=== PATIENT | male | born 1970 | race Caucasian/White ===

== ENCOUNTER → 2019-10-04 11:27 | Outpatient (CLI) | payer BC, SELFPAY ==
--- NOTE | 2019-10-04 11:43 | CT_ITS ---
PROCEDURE: CT HEART W CALCIUM SCORE CLINICAL HISTORY: evaluation for cad COMPARISON: No exams were available for comparison TECHNIQUE: Axial images obtained with sagittal and coronal reformats. All CT scans at the facility use one or more dose reduction, viz: automated exposure control, ma/kV adjustment per patient size (including targeted exams where dose is matched to indication, i.e. head), or iterative reconstruction technique. FINDINGS: The coronary artery calcium score is 1 indicating minimal plaque burden with low cardiovascular disease risk. Incidental findings include multiple old left-sided rib fractures. IMPRESSION: Minimal calcific plaque burden with low cardiovascular disease risk Dictated by: Juan J Glass MD 10/04/2019 12:43 Electronically signed by Juan J Glass MD in [facility] 10/04/2019 12:43
== END ==
PROVIDERS: PCP Internal Medicine; Visit Provider Internal Medicine
DX: R07.9 Chest pain, unspecified (principal)
CPT/HCPCS: 75571